=== PATIENT | female | born 1960 | race Asian ===

== ENCOUNTER 2018-05-02 08:47 | Emergency (ER) | payer SELFPAY ==
[2018-05-02] MEDS ORDERED: ETOMIDATE INJ/PF 20 MG/10 ML SDV IV ONE (08:49)
[2018-05-02] MEDS ORDERED: NICARDIPINE HCL RTU, ISO-OS 20 MG/200 ML RTUINJ IV PRN (09:01)
--- NOTE | 2018-05-02 09:14 | ER Document Report ---
ED General - General Stated Complaint: POSSIBLE STROKE Time Seen by Provider: 05/02/18 08:59 Mode of Arrival: Medic Information source: Transfer Record Notes: 57 year old female brought to the ED by EMS for unresponsiveness. Patient was at [place] at work when she went to sit down. Coworkers found her sitting unresponsive. EMS was called. When they arrived they noticed that her right pupil was 4 mm and nonreactive. Patient has decorticate posturing. They note that she was weak in the right upper and lower extremities. Initially they state that she was trying to respond and then went completely unresponsive. This occurred at 0815. TRAVEL OUTSIDE OF THE [place] IN LAST 30 DAYS: No - HPI Onset: Just prior to arrival Onset/Duration: Sudden - Related Data Allergies/Adverse Reactions: No Known Allergies Allergy (Verified 05/02/16 18:35) Past Medical History - General Information source: Transfer Record - Social History Smoking Status: Unknown if Ever Smoked Family History: Reviewed & Not Pertinent - Past Medical History Cardiac Medical History: Reports: Hx Hypertension - MEDICATION Denies: Hx Heart Attack Pulmonary Medical History: Denies: Hx Asthma Neurological Medical History: Reports: Hx Cerebrovascular Accident - MILD STROKE ON RIGHT SIDE 5 YRS AGO. Denies: Hx Seizures GI Medical History: Denies: Hx Hepatitis, Hx Hiatal Hernia, Hx Ulcer Infectious Medical History: Denies: Hx Hepatitis Past Surgical History: Denies: Hx Mastectomy, Hx Open Heart Surgery, Hx Pacemaker - Immunizations Immunizations up to date: Yes Hx Diphtheria, Pertussis, Tetanus Vaccination: Yes Review of Systems - Review of Systems -: Yes ROS unobtainable due to patient's medical condition Physical Exam - Vital signs Vitals: Resp 28 H 05/02/18 08:50 - Notes Notes: PHYSICAL EXAMINATION: GENERAL: Unresponsive. HEAD: Atraumatic. EYES: Right pupil 4mm and unreactive to light. Left pupil 2mm and unreactive to light. ENT: Nares patent, oropharynx has vomit. Moist mucous membranes. NECK: Supple. LUNGS: Breath sounds clear to auscultation bilaterally and equal. No wheezes rales or rhonchi. HEART: Regular rate and rhythm without murmurs ABDOMEN: Soft, nontender, nondistended abdomen. No guarding, no rebound. No masses appreciated. Female : deferred Musculoskeletal: No pitting or edema. No cyanosis. NEUROLOGICAL: Pupils unreactive. 4mm on the Right and 2mm of the left. Decerebrate postering. No movement of extremities spontaneously or with painful stimuli. No corneal reflex. SKIN: Warm, Dry, normal turgor, no rashes or lesions noted. Course - Re-evaluation Re-evalutation: 05/02/18 09:15 EKG: Ventricular rate 63, ME interval 128, QRS duration 90, QTc 471, sinus rhythm. 05/02/18 10:05 Patient has GCS of [address] obtained. A 5 cm intracranial hemorrhage with a 1 cm right to left midline shift is appreciated. I spoke with the neurosurgeon at [facility]. He is agreeable with transfer of the patient. Recommend starting mannitol 1 g/kg and Nicardipine drip continuation. Neuro geriatric assistant recommended starting propofol drip for sedation. Flight contacted for transfer. Patient is currently stable. 05/02/18 10:28 05/02/18 10:36 - Vital Signs Vital signs: Temp Pulse Resp BP Pulse Ox 96.7 F L 65 17 173/83 H 100 05/02/18 09:24 05/02/18 09:24 05/02/18 10:16 05/02/18 10:16 05/02/18 10:16 - Laboratory Result Diagrams: 05/02/18 09:00 05/02/18 09:00 Laboratory results interpreted by me: 05/02/18 05/02/18 05/02/18 09:00 09:00 09:00 WBC 10.6 H Lymphocytes % 48.3 H Absolute Lymphocytes 5.1 H Potassium 2.9 L* Carbon Dioxide 21 L Est GFR (Non-Af Amer) 59 L Glucose 162 H POC Glucose Lactic Acid Total Protein 8.3 H Urine Protein >=500 H Urine Glucose (UA) 150 H Urine Blood SMALL H Salicylates < 1.0 L Acetaminophen < 10 L 05/02/18 05/02/18 09:24 09:43 WBC Lymphocytes % Absolute Lymphocytes Potassium Carbon Dioxide Est GFR (Non-Af Amer) Glucose POC Glucose 170 H Lactic Acid 3.6 H Total Protein Urine Protein Urine Glucose (UA) Urine Blood Salicylates Acetaminophen Procedures - Intubation Nasotracheal Airway evaluation: Normal anatomy Mallampati Classification: Class 2 Medications: Etomidate, Succinylcholine Intubation method: Orotracheal Blade size: 4 Equipment used: Glidescope ETT size: 7.5 ETT secured at: Teeth ETT secured at (cm): 23 Breath Sounds after Intubation: Right greater than left End tidal CO2 confirmed: Yes Post Intubation Xray: Yes - tube pulled back 2cm. Now at 21cm Intubation Complications: No complications Critical Care Note - Critical Care Note Total time excluding time spent on procedures (mins): 60 Discharge - Discharge Clinical Impression: Intracranial hemorrhage Condition: Serious Disposition: [facility]
[2018-05-02 09:15] LABS: ABSOLUTE BASOPHILS # (AUTO) 0.1 10^3/uL (0.0-0.2); ABSOLUTE EOSINOPHILS # (AUTO) 0.2 10^3/uL (0.0-0.6); ABSOLUTE LYMPHOCYTES (AUTO) 5.1 10^3/uL (0.5-4.7); ABSOLUTE MONOCYTES (AUTO) 0.7 10^3/uL (0.1-1.4); ABSOLUTE NEUT (AUTO) 4.5 10^3/uL (1.7-8.2); BASOPHILS % (AUTO) 0.5 % (0-2); EOSINOPHILS % (AUTO) 2.2 % (0-6); HEMATOCRIT 39.7 % (36.0-47.0); HEMOGLOBIN 13.7 g/dL (12.0-15.5); LYMPHOCYTES % (AUTO) 48.3 % (13-45); MEAN CORPUSCULAR HGB CONC 34.5 g/dL (32.0-36.0); MEAN CORPUSCULAR VOLUME 84 fl (80-97); MONOCYTES % (AUTO) 6.2 % (3-13); PLATELET COUNT 356 10^3/uL (150-450); RED BLOOD COUNT 4.72 10^6/uL (3.72-5.28); RED CELL DISTRIBUTION WIDTH 13.3 % (11.5-14.0); SEGMENTED NEUTROPHILS % (AUTO) 42.8 % (42-78); TOTAL CELLS COUNTED % (AUTO) 100 %; WHITE BLOOD COUNT 10.6 10^3/uL (4.0-10.5)
[2018-05-02 09:21] LABS: PROTHROMBIN TIME 12.6 SEC (11.4-15.4)
[2018-05-02 09:31] LABS: ALANINE AMINOTRANSFERASE 22 U/L (9-52); ALBUMIN 4.6 g/dL (3.5-5.0); ALKALINE PHOSPHATASE 110 U/L (38-126); ANION GAP 15 (5-19); ASPARTATE AMINO TRANSFERASE 34 U/L (14-36); BILIRUBIN,DIRECT 0.2 mg/dL (0.0-0.4); BILIRUBIN,TOTAL 0.7 mg/dL (0.2-1.3); BLOOD UREA NITROGEN 20 mg/dL (7-20); CALCIUM 9.3 mg/dL (8.4-10.2); CARBON DIOXIDE 21 mmol/L (22-30); CHLORIDE 106 mmol/L (98-107); GLUCOSE 162 mg/dL (75-110); LIPASE 227.9 U/L (23-300); SODIUM 141.8 mmol/L (137-145); TOTAL PROTEIN 8.3 g/dL (6.3-8.2)
--- NOTE | 2018-05-02 09:34 | RADIOLOGY REPORT (SQ) ---
EXAM DESCRIPTION: CT HEAD WITHOUT COMPLETED DATE/TIME: 05/02/2018 9:18 am REASON FOR STUDY: cva COMPARISON: None. TECHNIQUE: Axial images acquired through the brain without intravenous contrast. Images reviewed wi th bone, brain and subdural windows. Images stored on PACS. All CT scanners at this facility use dose modulation, iterative reconstruction, and/or weight based d osing when appropriate to reduce radiation dose to as low as reasonably achievable (ALARA). [facility]: Dose Right [facility]: CareDose [facility]: Dose Right [facility]: Teradose 4D [facility]: [employer] RADIATION DOSE: CT Rad equipment meets quality standard of care and radiation dose reduction techniq ues were employed. CTDIvol: 53.2 mGy. DLP: 1017 mGy-cm. mGy. LIMITATIONS: None. FINDINGS: VENTRICLES: Intraventricular hemorrhage, most notable in the right lateral ventricle but a lso seen in the left lateral, 3rd and 4th ventricles. Slight dilatation. CEREBRUM: Large acute appearing deep white matter hemorrhage measuring at least 5 cm maximal dimensio n. Mass effect on the right lateral ventricle with just under 1 cm of midline shift right to left. CEREBELLUM: No masses. No hemorrhage. No alteration of density. No evidence for acute infarction. EXTRAAXIAL SPACES: As above. ORBITS AND GLOBE: No intra- or extraconal masses. Normal contour of globe without masses. CALVARIUM: No fracture. PARANASAL SINUSES: No fluid or mucosal thickening. SOFT TISSUES: No mass or hematoma. OTHER: No other significant finding. IMPRESSION: 1. Large acute appearing intracranial hemorrhage. Right deep white matter parenchymal hematoma with decompression into the ventricular system. Right to left midline shift measuring almos t 1 cm noted. Pertinent findings on the imaging study reported as a CRITICAL RESULT to DEVORAH BACA MD at09:2 5 on 05/02/2018. Category of Critical Result: Stroke alert EVIDENCE OF ACUTE STROKE: NO. COMMENT: Quality ID # [id number]: Final reports with documentation of one or more dose reduction techniques (e.g., Automated exposure control, adjustment of the mA and/or kV according to patient size, use of iterative reconstruction technique) TECHNICAL DOCUMENTATION: JOB ID: [id number] [employer]- All Rights Reserved Reading location - IP/workstation name: [email or web address]
[2018-05-02 09:35] LABS: ACETAMINOPHEN < 10 ug/mL (10-30); ALCOHOL < 10 mg/dL (NONE DETECTED); SALICYLATE < 1.0 mg/dL (2.0-20.0)
[2018-05-02] MEDS ORDERED: NALOXONE HCL INJ 2 MG/2 ML DISP.SYRIN IV ONE (09:37)
[2018-05-02 09:38] LABS: POTASSIUM 2.9 mmol/L (3.6-5.0)
[2018-05-02] MEDS ORDERED: SUCCINYLCHOLINE CHLORIDE INJ 200 MG/10 ML VIAL IV ONE (09:38)
[2018-05-02 09:40] LABS: APPEARANCE,URINE CLEAR; BILIRUBIN,URINE NEGATIVE (NEGATIVE); COLOR,URINE YELLOW; GLUCOSE, URINE 150 mg/dL (NEGATIVE); KETONES,URINE NEGATIVE (NEGATIVE); LEUKOCYTE ESTERASE,URINE NEGATIVE (NEGATIVE); NITRITE,URINE NEGATIVE (NEGATIVE); PROTEIN,URINE >=500 mg/dL (NEGATIVE); UROBILINOGEN,URINE NEGATIVE mg/dL (<2.0)
[2018-05-02 09:41] LABS: URINE SPECIFIC GRAVITY 1.011
[2018-05-02 10:00] LABS: URINE AMPHETAMINES SCREEN NEGATIVE; URINE BARBITURATES SCREEN NEGATIVE; URINE BENZODIAZEPINES SCREEN NEGATIVE; URINE COCAINE SCREEN NEGATIVE; URINE MARIJUANA (THC) SCREEN NEGATIVE; URINE METHADONE SCREEN NEGATIVE; URINE PHENCYCLIDINE SCREEN NEGATIVE
[2018-05-02] MEDS ORDERED: NORMAL SALINE 1000 ML 1,000 ML IV ONE (10:01)
[2018-05-02] MEDS ORDERED: MANNITOL 25% INJ 12.5 GM/50 ML VIAL IV ONE (10:01)
[2018-05-02] MEDS ORDERED: PROPOFOL INJ 200 MG/20 ML VIAL IV ONE (10:02)
--- NOTE | 2018-05-02 10:03 | RADIOLOGY REPORT (SQ) ---
EXAM DESCRIPTION: CHEST SINGLE VIEW COMPLETED DATE/TIME: 05/02/2018 9:30 am REASON FOR STUDY: ams COMPARISON: None. FINDINGS: Single-view chest AP portable semi upright 4 nasogastric and endotracheal tube placement. Endotracheal tube lies in the proximal right mainstem bronchus and needs to be retracted. Please see followup radiographs from same date. Nasogastric tube is down but side hole lies at the gastroesophageal junction. This should be advance d further. Lungs are relatively clear. IMPRESSION: 1. Low lying endotracheal tube. This has subsequently been appropriately repositioned. Please see subsequent radiographic imaging. 2. Nasogastric tube should be advanced slightly. TECHNICAL DOCUMENTATION: JOB ID: [id number] Reading location - IP/workstation name: [email or web address]
--- NOTE | 2018-05-02 10:05 | RADIOLOGY REPORT (SQ) ---
EXAM DESCRIPTION: CHEST SINGLE VIEW COMPLETED DATE/TIME: 05/02/2018 9:57 am REASON FOR STUDY: tube position COMPARISON: Single-view chest from earlier. FINDINGS: Supine AP view of the chest timed approximately 0954 hours. Nasogastric tube unchanged. This should be advanced further into the stomach. Endotracheal tube has been readjusted, tip now appropriately located above the vernon. TECHNICAL DOCUMENTATION: JOB ID: [id number] Reading location - IP/workstation name: [email or web address]
[2018-05-02] MEDS ORDERED: PROPOFOL 1,000 MG/100 ML INFUS..BTL IV ONE (10:06)
[2018-05-02] MEDS ORDERED: POTASSI CL 20 MEQ/50 ML RIDER 20 MEQ/50 ML RTUPB IV SCH (10:07)
--- NOTE | 2018-05-02 10:11 | EKG REPORT ---
SEVERITY:- ABNORMAL ECG - SINUS RHYTHM LVH WITH SECONDARY REPOLARIZATION ABNORMALITY : Confirmed by: Joan Walls MD 02-May-2018 10:11:18
[2018-05-02] MEDS ORDERED: MANNITOL 250 ML IV ONE (11:00)
[2018-05-02] MEDS ORDERED: SUCCINYLCHOLINE CHLORIDE INJ 200 MG/10 ML VIAL ONE (11:00)
[2018-05-02 11:07] VITALS: BP 176/83
== END 2018-05-02 10:50 | disposition short-term general hospital (02) ==
LOC: ER 08:47
DX: I62.9 Nontraumatic intracranial hemorrhage, unspecified (principal); R40.2432 Glasgow coma scale score 3-8, at arrival to emergency department
CPT/HCPCS: 93005; 99291; 96375; 96365; 96368; 36415; 87040; 82962; 80307 ×4; 83690; 85025; 85610; 80053; 81001; 84484; 83605; 71045; 70450; 94660; 93010; 31500; J2704; J0330; J2310; J3480; J2150; J7030; J3490 ×2